=== PATIENT | female | born 1985 | race Caucasian/White ===

== ENCOUNTER 2021-01-18 10:36 | Emergency (ER) | payer OTHER ==
[~2021-01-18] VITALS: Ht 165.1 cm; Wt 120.4 kg
[2021-01-18] MEDS ORDERED: MECLIZINE 12.5 MG TABLET. PO ONE (11:00)
[2021-01-18] MEDS ORDERED: ONDANSETRON ODT 4 MG TAB.RAPDIS PO ONE (11:00)
[2021-01-18 11:25] LABS: BASO # 0.1 x10^3/uL (0.0-0.2); BASO % 1 % (0-3); EOS # 0.1 x10^3/uL (0.0-0.7); EOS % 2 % (0-3); HEMATOCRIT 41.1 % (36.0-47.0); HEMOGLOBIN 13.8 g/dL (12.0-15.5); LYMPH # 1.7 x10^3/uL (1.0-4.8); LYMPH % 20 % (24-48); MEAN CORPUSCULAR HEMOGLOBIN 31 pg (25-35); MEAN CORPUSCULAR HGB CONC 34 g/dL (31-37); MEAN CORPUSCULAR VOLUME 93 fL (79-100); MONO # 0.7 x10^3/uL (0.0-1.1); MONO % 8 % (0-9); NEUT # 6.1 x10^3uL (1.8-7.7); NEUT % 69 % (31-73); PLATELET COUNT 280 x10^3/uL (140-400); RED BLOOD COUNT 4.45 x10^6/uL (3.50-5.40); RED CELL DISTRIBUTION WIDTH 12.9 % (11.5-14.5); WHITE BLOOD COUNT 8.7 x10^3/uL (4.0-11.0)
[2021-01-18 11:33] LABS: CALCIUM 8.9 mg/dL (8.5-10.1); CREATININE 0.8 mg/dL (0.6-1.0); GFR 82.6; POTASSIUM 3.8 mmol/L (3.5-5.1)
[2021-01-18 11:37] LABS: ALBUMIN/GLOBULIN RATIO 1.2 (1.0-1.7); MAGNESIUM 2.3 mg/dL (1.8-2.4); TOTAL BILIRUBIN 0.4 mg/dL (0.2-1.0); TOTAL PROTEIN 7.3 g/dL (6.4-8.2)
[2021-01-18] MEDS ORDERED: SUMAtriptan SUCC 6 MG/0.5 ML VIAL SQ ONE (12:00)
--- NOTE | 2021-01-18 12:06 | PHYS DOC ---
Past History Additional Past Medical Histor: PTSD, factor 5 (JADE DONNELLY) Past Surgical History: , Other Additional Past Surgical Histo: hernia (JADE DONNELLY) General Adult EDM: Chief Complaint: DIZZY/LIGHT HEADED HPI: HPI: Patient is a 35 year old female with history of migraines who presents with dizziness, nausea since 0900 this morning. Patient states she was playing a video game when she began to have a sensation of the room spinning. She reports associated headache across her forehead, mainly on the left side. Patient states she feels as though she "just got off the space ship spinning ride." Patient denies vision changes and visual field deficits, emesis. Patient has never had similar symptoms before. She did take 3 325 mg tablets of aspirin shortly after symptom onset. Patient was given 4 Zofran by EMS in route. Patient has no other complaints at this time. (JADE DONNELLY) Review of Systems: Review of Systems: Constitutional: Denies fever or chills Eyes: See HPI HENT: Denies nasal congestion or sore throat Respiratory: Denies cough or shortness of breath Cardiovascular: Denies chest pain or edema GI: See HPI : Denies dysuria or hematuria Musculoskeletal: Denies back pain or joint pain Integument: Denies rash or other skin lesions Neurologic: See HPI (JADE DONNELLY) Current Medications: Current Meds: Current Medications Medications (Trade) Dose Ordered Sig/Heraclio Start Time Stop Time Status Last Admin Dose Admin Meclizine HCl (Antivert) 50 mg 1X ONCE 01/18/21 11:00 01/18/21 11:05 DC 01/18/21 11:00 50 MG Ondansetron HCl (Zofran Odt) 4 mg 1X ONCE 01/18/21 11:00 01/18/21 11:05 DC 01/18/21 11:00 4 MG (JADE DONNELLY) Allergies: Allergies: Allergies Coded Allergies Type Severity Reaction Last Updated Verified No Known Drug Allergies 01/18/21 No (JADE DONNELLY) Physical Exam: PE: Constitutional: Well developed, well nourished, non-toxic appearance, patient is obviously uncomfortable. HENT: Normocephalic, atraumatic, bilateral external ears normal, oropharynx moist, no oral exudates, nose normal. Eyes: PERRLA, EOMI, conjunctiva normal, no discharge. Neck: Normal range of motion, no tenderness, supple, no stridor. Cardiovascular: Heart rate regular rhythm, no murmur. Lungs & Thorax: Bilateral breath sounds clear to auscultation. Abdomen: Bowel sounds normal, soft, no tenderness, no masses, no pulsatile masses. Neurologic: Alert and oriented x3, gross motor function intact, gross sensory function intact, no focal deficits noted. Negative Gower-Hallpike maneuver. (JADE DONNELLY) Current Patient Data: Labs: Laboratory Tests Test 01/18/21 11:10 01/18/21 11:33 White Blood Count 8.7 x10^3/uL (4.0-11.0) Red Blood Count 4.45 x10^6/uL (3.50-5.40) Hemoglobin 13.8 g/dL (12.0-15.5) Hematocrit 41.1 % (36.0-47.0) Mean Corpuscular Volume 93 fL (79-100) Mean Corpuscular Hemoglobin 31 pg (25-35) Mean Corpuscular Hemoglobin Concent 34 g/dL (31-37) Red Cell Distribution Width 12.9 % (11.5-14.5) Platelet Count 280 x10^3/uL (140-400) Neutrophils (%) (Auto) 69 % (31-73) Lymphocytes (%) (Auto) 20 % (24-48) L Monocytes (%) (Auto) 8 % (0-9) Eosinophils (%) (Auto) 2 % (0-3) Basophils (%) (Auto) 1 % (0-3) Neutrophils # (Auto) 6.1 x10^3uL (1.8-7.7) Lymphocytes # (Auto) 1.7 x10^3/uL (1.0-4.8) Monocytes # (Auto) 0.7 x10^3/uL (0.0-1.1) Eosinophils # (Auto) 0.1 x10^3/uL (0.0-0.7) Basophils # (Auto) 0.1 x10^3/uL (0.0-0.2) Sodium Level 137 mmol/L (136-145) Potassium Level 3.8 mmol/L (3.5-5.1) Chloride Level 103 mmol/L (98-107) Carbon Dioxide Level 25 mmol/L (21-32) Anion Gap 9 (6-14) Blood Urea Nitrogen 11 mg/dL (7-20) Creatinine 0.8 mg/dL (0.6-1.0) Estimated GFR (Cockcroft-Gault) 82.6 BUN/Creatinine Ratio 14 (6-20) Glucose Level 100 mg/dL (70-99) H Calcium Level 8.9 mg/dL (8.5-10.1) Magnesium Level 2.3 mg/dL (1.8-2.4) Total Bilirubin 0.4 mg/dL (0.2-1.0) Aspartate Amino Transferase (AST) 16 U/L (15-37) Alanine Aminotransferase (ALT) 26 U/L (14-59) Alkaline Phosphatase 60 U/L (46-116) Total Protein 7.3 g/dL (6.4-8.2) Albumin 4.0 g/dL (3.4-5.0) Albumin/Globulin Ratio 1.2 (1.0-1.7) POC Urine HCG, Qualitative hcg negative (Negative) Vital Signs: Vital Signs Date Time Temp Pulse Resp B/P (MAP) Pulse Ox O2 Delivery O2 Flow Rate FiO2 01/18/21 11:00 98.5 64 16 120/76 (91) 98 Room Air (JADE DONNELLY) EKG: EKG: EKG Interpreted by Dr. Aguilar at 1159: Regular rate and rhythm 55 bpm with no ectopic beats. No concerning ST-T wave changes. Regular QR interval. (JADE DONNELLY) Heart Score: C/O Chest Pain: No (JADE DONNELLY) Course & Med Decision Making: Course & Med Decision Making Pertinent Labs and Imaging studies reviewed. (See chart for details) Patient work-up will include EKG and lab work to check for anemia or electrolyte disturbance. Patient may have BPPV or vestibular migraine. Lab work is largely unremarkable. On reevaluation, patient still feels dizzy and has a headache, but nausea and abdominal discomfort has resolved. Patient given Imitrex and benadryl to treat migraine. Patient's pain is significantly improved. Patient will be discharged home with prescription sent for Imitrex. Patient instructed to follow-up with neurology, contact information provided. Patient understands and is agreeable to discharge plan. (JADE DONNELLY) Course & Med Decision Making I was the Attending physician on the above date of service of this patient. This patient was evaluated, examined, treated, and dispositioned from the emergency department by the mid-level practitioner. Although I was working at the time , no assistance was requested. Electronically signed, Krissy Fam DO (KRISSY FAM DO) Nusrat Disclaimer: Nusrat Disclaimer: This electronic medical record was generated, in whole or in part, using a voice recognition dictation system. (JADE DONNELLY) Departure Departure: Impression: Primary Impression: Vestibular migraine Disposition: HOME / SELF CARE / HOMELESS Condition: STABLE Referrals: PCP,UNKNOWN (PCP) PO MTZ MD Patient Instructions: Migraine Headache, [id number], Vertigo, [id number] Additional Instructions: As discussed, you should follow-up with neurology regarding further treatment for migraine headache. Please return to the emergency department if your symptoms return or you develop new symptoms. Scripts Sumatriptan Succinate (IMITREX) 100 Mg Tablet 1 TAB PO PRN DAILY PRN for MIGRAINE HEADACHE, #10 TAB 1 Refill Take 1 tablet by mouth daily as needed for migraine headache. You may take 1 additional dose after 2 hours if symptoms do not improve. Do not take more than 2 tablets daily. Prov: JADE DONNELLY 01/18/21 JADE DONNELLY Jan 18, 2021 12:06 KRISSY FAM DO Jan 19, 2021 06:19
[2021-01-18 12:07] VITALS: BP 125/78
--- NOTE | 2021-01-18 12:08 | EKG ---
[address] [address] Test Date: 2021-01-18 Test Time: 11:47:44 Pat Name: RUTH JOHNSON Department: Room: Gender: F [employer] Truck Driver: NAYANA : 1985 Requested By: JADE DONNELLY Order Number: [id number] Reading MD: Edgardo Alvarado Measurements Intervals [place] Rate: 55 P: 17 CO: 162 QRS: 0 QRSD: 106 T: 41 QT: 450 QTc: 433 Interpretive Statements SINUS RHYTHM LEFTWARD AXIS INCOMPLETE RIGHT BUNDLE BRANCH BLOCK OTHERWISE NORMAL ECG RI6.02 No previous ECG available for comparison Electronically Signed On 01-21-2021 9:37:58 [employer] by Edgardo Alvarado
[2021-01-18] MEDS ORDERED: diphenhydrAMINE 50 MG/ML VIAL IVP ONE (12:15)
[2021-01-18] MEDS ORDERED: SUMA100T3 PO (12:44)
== END 2021-01-18 12:55 | disposition home or self-care (01) ==
LOC: ER 10:36
DX: G43.909 Migraine, unspecified, not intractable, without status migrainosus (principal); R42 Dizziness and giddiness
CPT/HCPCS: 36415; 80053; 81025; 83735; 85025; 93005; 96372; 96374; 99284; J1200; J3030; Q0162